=== PATIENT | female | born 1995 | race Caucasian/White ===

== ENCOUNTER 2018-05-14 13:57 | Emergency (ER) | payer OTHER ==
[2018-05-14 14:24] VITALS: BP 119/55
--- NOTE | 2018-05-14 14:52 | UC ---
Head Injury HPI - HPI Summary HPI Summary: The patient is a 22 yo female that presents one hour after head injury No LOC No neck pain No Nausea/vomiting No balance problems Has trouble focusing no double or blurred vision She states that she was riding [place] horse [place]. She was not wearing a helmet. She fell off the horse. She struck the left side of her face on the sand covered floor of the horse rink. The horse walked over her and one of his rear hooves struck her in the right occiput. She initially had some nausea but that has passed. He denies any photo or phonophobia. No history of head injury in the past. - History Of Current Complaint Chief Complaint: UCHeadInjury Stated Complaint: HEAD INJURY Time Seen by Provider: 05/14/18 14:38 Hx Obtained From: Patient Hx Last Menstrual Period: 04/29/18 Onset/Duration: Sudden Onset, Gradual Onset Severity Currently: Severe Severity Initially: Severe Pain Intensity: 8 Pain Scale Used: 0-10 Numeric Character: Dull, Throbbing Aggravating Factor(s): Nothing Associated Signs And Symptoms: Negative: LOC (Time In Secs./Mins/Hrs), LOC Duration Unknown, Confusion, Memory Loss, Seizure, Epistaxis, Dental Malocclusion, Neck Pain, Nausea, Vomiting - Allergies/Home Medications Allergies/Adverse Reactions: Allergies Allergy/AdvReac Type Severity Reaction Status Date / Time morphine Allergy Unknown Rash Verified 05/14/18 14:15 MS Morphine [Morphine] Allergy Rash Verified 03/06/16 19:28 Home Medications: Home Medications Oral Contraceptive 05/14/18 [History] PMH/Surg Hx/FS Hx/Imm Hx Previously Healthy: Yes - Surgical History Surgical History: Yes Surgery Procedure, Year, and Place: C- section 02/2015. Gall bladder 04/2015 - Family History Known Family History: Positive: Hypertension - Social History Alcohol Use: None Substance Use Type: None Smoking Status (MU): Never Smoked Tobacco Review of Systems Constitutional: Negative Skin: Negative Eyes: Negative ENT: Negative Respiratory: Negative Cardiovascular: Negative Gastrointestinal: Negative Genitourinary: Negative Motor: Negative Neurovascular: Negative Musculoskeletal: Negative Neurological: Headache Psychological: Negative All Other Systems Reviewed And Are Negative: Yes Physical Exam Triage Information Reviewed: Yes Appearance: Well-Appearing, No Pain Distress, Well-Nourished, Other: - in NAD, lifting and playing with her son Vital Signs: Initial Vital Signs Temp 98.3 F 05/14/18 14:17 Pulse 73 05/14/18 14:17 Resp 16 05/14/18 14:17 BP 119/55 05/14/18 14:17 Pulse Ox 100 05/14/18 14:17 Eye Exam: Normal Eyes: Positive: Conjunctiva Clear, Other: - eomi/perrl/fundi benign ENT: Positive: Hearing grossly normal. Negative: Nasal congestion, Nasal drainage, Tonsillar swelling, Tonsillar exudate, Hoarse voice, Sinus tenderness , Uvula midline Neck: Positive: Supple, Nontender, No Lymphadenopathy Respiratory: Positive: Lungs clear, Normal breath sounds, No respiratory distress, No accessory muscle use Cardiovascular: Positive: RRR, No Murmur Musculoskeletal: Positive: ROM Intact, No Edema Neurological: Positive: Alert, Other: - GCS 15/15, strenght 5/5, sensory intact , cn2-12 intact, normal gait, -rhomberg Psychological Exam: Normal Skin Exam: Normal Head Injury Course/Dx - Differential Dx/Diagnosis Provider Diagnoses: concussion without LOC Discharge - Sign-Out/Discharge Documenting (check all that apply): Patient Departure All imaging exams completed and their final reports reviewed: No Studies - Discharge Plan Condition: Stable Disposition: HOME Patient Education Materials: Concussion (ED) Referrals: Jeremy Gee MD [Primary Care Provider] - 5 Days (if not better) Additional Instructions: rest (physical and mental) ice tylenol or advil for pain no horseback riding for a week - Billing Disposition and Condition Condition: STABLE Disposition: Home Images Head: 1 - scalp hematoma 2 - hematoma
== END 2018-05-14 14:56 | disposition home or self-care (01) ==
LOC: UCCORT 13:57
DX: S06.0X0A Concussion without loss of consciousness, initial encounter (principal); V80.010A Animal-rider injured by fall from or being thrown from horse in noncollision accident, initial encounter; Y92.9 Unspecified place or not applicable; Z88.5 Allergy status to narcotic agent
CPT/HCPCS: 99211; G0463

== ENCOUNTER 2019-09-10 10:28 | Emergency (ER) | payer BC, OTHER ==
[2019-09-10 11:12] VITALS: BP 113/68
--- NOTE | 2019-09-10 11:39 | UC ---
UC General HPI - HPI Summary HPI Summary: Last night woke up with bodyaches and cough. Congestion. Tmax; 100. Had some diarrhea this morning as well. Good PO. No N/v. Sore throat. Nonsmoker Meds: reviewed - History of Current Complaint Chief Complaint: UCGeneralIllness Stated Complaint: FLULIKE SYMPTOMS Time Seen by Provider: 09/10/19 11:25 Hx Last Menstrual Period: 04/29/18 Pain Intensity: 6 - Allergy/Home Medications Allergies/Adverse Reactions: Allergies Allergy/AdvReac Type Severity Reaction Status Date / Time morphine Allergy Unknown Rash Verified 09/10/19 11:13 Home Medications: Home Medications Amoxicillin PO (*) [Amoxicillin 875 MG (*)] 1 dose PO BID 09/10/19 [History Confirmed 09/10/19] PMH/Surg Hx/FS Hx/Imm Hx Previously Healthy: Yes - Surgical History Surgical History: Yes Surgery Procedure, Year, and Place: C- section x3. Gall bladder 04/2015 - Family History Known Family History: Positive: Hypertension - Social History Alcohol Use: None Substance Use Type: None Smoking Status (MU): Never Smoked Tobacco Review of Systems All Other Systems Reviewed And Are Negative: Yes Constitutional: Positive: Fever ENT: Positive: Sore Throat Respiratory: Positive: Cough Physical Exam Triage Information Reviewed: Yes Appearance: Well-Appearing Vital Signs: Initial Vital Signs Temp 98.5 F 09/10/19 11:11 Pulse 82 09/10/19 11:11 Resp 17 09/10/19 11:11 BP 113/68 09/10/19 11:11 Pulse Ox 98 09/10/19 11:11 ENT: Positive: Pharyngeal erythema, Nasal congestion, TMs normal Neck: Positive: Supple, Nontender Respiratory: Positive: Lungs clear, Decreased breath sounds Cardiovascular: Positive: RRR, No Murmur Course/Dx - Course Course Of Treatment: This is a 24 yr old with bodyaches cough and low grade temp Flu: Negative Nontoxic appearing No respiratory distress Plan Your flu test was negative Recommend continuing supportive care Continue to rest, fluids, tylenol and/or ibuprofen as needed for pain/fever - take as directed Can use over the counter decongestant and cough suppressant such as sudafed and mucinex If symptoms persist or worsen, recommend follow up with PCP or return to urgent care - Diagnoses Provider Diagnosis: Viral syndrome Discharge ED - Sign-Out/Discharge Documenting (check all that apply): Patient Departure All imaging exams completed and their final reports reviewed: No Studies - Discharge Plan Condition: Good Disposition: HOME Patient Education Materials: Viral Syndrome (ED) Referrals: Jeremy Gee MD [Primary Care Provider] - Additional Instructions: Your flu test was negative Recommend continuing supportive care Continue to rest, fluids, tylenol and/or ibuprofen as needed for pain/fever - take as directed Can use over the counter decongestant and cough suppressant such as sudafed and mucinex If symptoms persist or worsen, recommend follow up with PCP or return to urgent care - Billing Disposition and Condition Condition: GOOD Disposition: Home
[2019-09-10 11:44] LABS: Influenza A Molecular Negative (Negative); Influenza B Molecular Negative (Negative)
== END 2019-09-10 11:50 | disposition home or self-care (01) ==
LOC: UCCORT 10:28
DX: B34.9 Viral infection, unspecified (principal); J02.9 Acute pharyngitis, unspecified; R05 Cough; R09.81 Nasal congestion; R52 Pain, unspecified; R19.7 Diarrhea, unspecified; Z88.5 Allergy status to narcotic agent
CPT/HCPCS: 99211; G0463